=== PATIENT | female | born 1965 | race Caucasian/White ===

== ENCOUNTER 2020-12-03 10:21 | Emergency (ER) | payer BC ==
[2020-12-03 10:55] VITALS: PULSE 88; TEMP 98.8; BMI 28.0
[2020-12-03] MEDS ORDERED: SODIUM CHLORIDE 1,000 ML IV STA (11:38)
[2020-12-03 12:06] LABS: BASO % 0.5 % (0-2.0); HEMOGLOBIN 12.2 GM/dL (10.7-15.3); MCH 28.9 pg (25.7-33.7); MCHC 32.8 g/dl (32.0-36.0); MEAN CELL VOLUME 87.9 fl (80-96); MEAN PLT VOLUME 7.8 fl (7.5-11.1); MONO % 9.9 % (3.8-10.2); NEUT % 62.6 % (42.8-82.8); PLATELET COUNT 183 10^3/uL (134-434); RBC 4.21 M/mm3 (3.60-5.2); RDW 13.7 % (11.6-15.6); WHITE BLOOD COUNT 5.4 K/mm3 (4.0-10.0)
[2020-12-03 12:22] LABS: CHLORIDE 103 mmol/L (98-107); SODIUM 135 mmol/L (136-145)
[2020-12-03 12:24] LABS: CALCIUM 8.3 mg/dL (8.5-10.1)
[2020-12-03 12:25] LABS: ALBUMIN 3.1 g/dl (3.4-5.0); BLOOD UREA NITROGEN 12.6 mg/dL (7-18); CO2 26 mmol/L (21-32); GLUCOSE,RANDOM 92 mg/dL (74-106); LIPASE 197 U/L (73-393)
[2020-12-03 12:28] LABS: CREATININE 0.8 mg/dL (0.55-1.3); SGOT/AST 52 U/L (15-37); SGPT/ALT 28 U/L (13-61)
[2020-12-03 12:29] LABS: BILIRUBIN,TOTAL 0.6 mg/dL (0.2-1)
[2020-12-03 12:30] LABS: TOT PROT 6.8 g/dl (6.4-8.2)
[2020-12-03 12:31] LABS: ALK PHOS 58 U/L (45-117)
[2020-12-03 12:33] LABS: ANION GAP 6 MMOL/L (8-16)
[2020-12-03 12:37] VITALS: BP 110/62
== END 2020-12-03 13:26 | disposition home or self-care (01) ==
LOC: JER 10:21
PROC: 3E0337Z Introduction of Electrolytic and Water Balance Substance into Peripheral Vein, Percutaneous Approach (ICD-10-PCS; principal; 2020-12-03)
DX: U07.1 COVID-19 (principal); J12.82 Pneumonia due to coronavirus disease 2019
CPT/HCPCS: 36415; 71046-TC-FY; 80053; 83690; 84132; 85025; 93005; 93010; 99285-25